=== PATIENT | male | born 1960 | race Caucasian/White ===

== ENCOUNTER → 2016-12-19 | Outpatient (CLI) | payer BC ==
[~2016-12-19] MED LIST: GADAVIST IV PRN
--- NOTE | 2016-12-19 14:48 | DIAGNOSTIC IMAGING REPORT ---
MR ANGIOGRAM OF THE BRAIN CLINICAL HISTORY: Strokelike symptoms. COMPARISON STUDY: MRI of the brain performed concurrently on 12/19/2016.. TECHNIQUE: 3-D [id number] MR angiography of the intracranial circulation is performed. 3-D tumble views are created and assessed. IV contrast was not administered for this examination. FINDINGS: The internal carotid arteries are widely patent bilaterally, as are the anterior and middle cerebral arteries. The vertebrobasilar system and posterior cerebral arteries are widely patent. The vertebral arteries are codominant. There is no aneurysm, high-grade stenosis, or focal vessel cutoff seen throughout the intracranial circulation. There is encephalomalacia from a remote right MCA territory infarct. IMPRESSION: Unremarkable MR angiogram of the brain. Electronically signed by: Shelton Lin M.D. 12/19/2016 2:47 PM Dictated Date/Time: 12/19/2016 2:45 PM
--- NOTE | 2016-12-19 14:55 | DIAGNOSTIC IMAGING REPORT ---
BRAIN COMBO CLINICAL HISTORY: 56 years-old Male presenting with 2 prior strokes, diabetes. TECHNIQUE: Multisequence, multiplanar MR imaging of the brain was performed before and after the administration of intravenous contrast. IV contrast: 9.5 mL of Gadavist. COMPARISON: CT head from 11/16/2016. FINDINGS: Apparent dilatation of the occipital horn of the left lateral ventricle with overlying cystic encephalomalacia in the left the subpleural lobe, likely indicates prior infarct. Extensive cystic encephalomalacia with surrounding gliosis of the right temporal lobe extending into the right insular cortex and parietal lobe, compatible with old right MCA infarct. Intrinsic T1 hyperintensity of the cortex along the inferior right temporal region likely indicates postischemic mineral deposition. This region may demonstrate minimal enhancement on postcontrast imaging compatible with breakdown of the blood-brain barrier. No convincing evidence of suspicious enhancement on postcontrast imaging. Old lacunar infarct noted in the left basal ganglia. Foci of subcortical and periventricular white matter T2/FLAIR hyperintensity, nonspecific but likely indicating chronic small vessel ischemic change. No mass effect or midline shift. No hemorrhage or acute territorial infarct. No extra-axial fluid collection. T2 skull base flow voids preserved. Paranasal sinuses and mastoid air cells clear. Calvarium intact. IMPRESSION: 1. No acute intracranial abnormality. 2. Chronic infarct in the right MCA distribution and left occipital lobe. 3. Old lacunar infarct in left basal ganglia. Electronically signed by: Cristo Carpio M.D. 12/19/2016 2:54 PM Dictated Date/Time: 12/19/2016 2:45 PM
== END | disposition home or self-care (01) ==
LOC: C.MRI 13:11
PROVIDERS: ATTEND Physician Assistant
DX: I63.9 Cerebral infarction, unspecified (principal)

== ENCOUNTER → 2017-01-03 | Outpatient (CLI) | payer BC ==
--- NOTE | 2017-01-03 17:00 | EEG Procedure Note ---
EEG Procedure Note Date of Service Jan 03, 2017. Start / End Times Start Time: 8:42 AM End Time: 9:02 AM Referring Physician Oksana Case History This is a 56-year-old male with seizure-like activity and history of stroke. EEG for further evaluation of seizure etiology. Description This is a 21 electrode EEG with a single channel dedicated to limited EKG. The electrodes were placed in accordance with the International 10-20 system. At the start of the recording the patient was in an awake state. Background was well organized and composed of symmetric mixed alpha and beta frequencies. There was a symmetric well-formed moderate amplitude 9-10 Hz posterior dominant rhythm that was reactive to eye opening and closure. Hyperventilation was not done. Intermittent photic stimulation at various frequencies produced no abnormalities. There was no state changes or sleep transients Interpretation This is a normal awake only routine EEG. There was no electrographic seizures or epileptiform discharges. Clinical Correlation A normal EEG does not rule out epilepsy if there is a strong clinical suspicion.
== END | disposition home or self-care (01) ==
LOC: C.NEUR 08:28
PROVIDERS: ATTEND Physician Assistant
DX: G40.909 Epilepsy, unspecified, not intractable, without status epilepticus (principal)